=== PATIENT | female | born 2000 | race Two or more races ===

== ENCOUNTER 2024-12-26 18:16 | Emergency (ER) | payer MEDICAID, OTHER ==
[~2024-12-26] VITALS: Ht 175.3 cm; Wt 75.0 kg
[2024-12-26 18:20] VITALS: TEMP 97.8
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
[2024-12-26 19:01] LABS: Hematocrit 47.0 % (36.0-46.0); Hemoglobin 16.1 g/dL (12.2-16.2); Mean Corpuscular Hemoglobin 28.8 pg (28.0-32.0); Mean Corpuscular Volume 84.2 fL (80.0-100.0)
[2024-12-26 19:06] LABS: Amphetamine Screen, Urine Pos (NEGATIVE); Barbiturate Scree,Urine Neg (NEGATIVE); Benzodiazephine Screen, Urine Neg (NEGATIVE); Cannabinoid Screen, Urine Pos (NEGATIVE); Cocaine Screen, Urine Neg (NEGATIVE); Opiate Scree,Urine Neg (NEGATIVE); Phencyclidine Screen, Urine Neg (NEGATIVE)
[2024-12-26 19:14] LABS: Alkaline Phosphatase 94 U/L (46-116); Anion Gap 12 (5-15); BUN/Creatinine Ratio 9.5 (10.0-20.0); Blood Urea Nitrogen 9 mg/dL (9-23); Calcium 9.3 mg/dL (8.7-10.4); Carbon Dioxide 23 mmol/L (20-31); Chloride 107 mmol/L (98-107); Potassium 3.7 mmol/L (3.5-5.1); Sodium 142 mmol/L (136-145); Total Protein 7.4 g/dL (5.7-8.2)
[2024-12-26 19:15] LABS: Albumin 4.4 g/dL (3.2-4.8)
[2024-12-26 19:16] LABS: Acetaminophen < 2.0 UG/ML (10.0-20.0); Salicylate < 3.0 mg/dL (-30)
[2024-12-26 19:17] LABS: Alanine Aminotransferase < 9 U/L (7-40); Bilirubin, Total 2.3 mg/dL (0.2-1.0); Glucose 258 mg/dL (74-106)
[2024-12-26 19:30] VITALS: PULSE 92; RESP 14; O2SAT 98
[2024-12-26 19:37] LABS: Total Cells Counted 100.0 (100)
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
[2024-12-27 01:45] VITALS: BP 127/82; PULSE 94; RESP 14; O2SAT 98
== END 2024-12-27 01:45 | disposition home or self-care (01) ==
LOC: EDBD 18:16 → ER 18:16
DX: F43.10 Post-traumatic stress disorder, unspecified (principal); Z79.899 Other long term (current) drug therapy
CPT/HCPCS: 36415; 80053; 80307; 80320; 80329; 81025; 85007; 85027